=== PATIENT | female | born 1975 | race Two or more races ===

== ENCOUNTER 2023-11-03 00:39 | Emergency (ER) | payer OTHER ==
[~2023-11-03] VITALS: Ht 152.4 cm; Wt 66.8 kg
[2023-11-03 01:14] VITALS: BP 129/85; PULSE 72; RESP 20; TEMP 98.4
[2023-11-03] MEDS ORDERED: FAMO20 PO (01:18)
[2023-11-03] MEDS ORDERED: PROP20TA18 PO (01:18)
[2023-11-03] MEDS ORDERED: ATOR20TA PO (01:18)
[2023-11-03] MEDS: KETOROLAC TROMETHAMINE 30 MG/ML VIAL IM ONE (02:38)
[2023-11-03] MEDS ORDERED: VALA500T PO (04:55)
[2023-11-03] MEDS ORDERED: LIDO700A15 TP (04:55)
== END 2023-11-03 05:45 | disposition home or self-care (01) ==
LOC: EMS 00:39
DX: B02.9 Zoster without complications (principal); I10 Essential (primary) hypertension; F17.210 Nicotine dependence, cigarettes, uncomplicated; Z88.0 Allergy status to penicillin; Z88.5 Allergy status to narcotic agent
CPT/HCPCS: 99283; 96372; J1885